=== PATIENT | female | born 1965 | race Caucasian/White ===

== ENCOUNTER 2020-07-19 18:18 | Emergency (ER) | payer OTHER, SELFPAY ==
[2020-07-19 19:29] VITALS: PULSE 89; RESP 16; TEMP 36.6; O2SAT 100; BMI 23.9
--- NOTE | 2020-07-19 20:07 | CT_ITS ---
EXAMINATION: CT HEAD WITHOUT CONTRAST CLINICAL INFORMATION: Headache. Left eye blurred vision. COMPARISON: None. TECHNIQUE: Contiguous axial imaging was performed from the skull base to vertex without intravenous contrast. This CT examination was performed using dose optimization techniques as appropriate, variously including the following: * Automated exposure control * Adjustment of mA and/or kV according to patient size (this includes techniques or standardized protocols for targeted exams where dose is matched to indication/reason for exam; i.e. extremities or head) Use of iterative reconstruction technique DLP: 689 mGy-cm. FINDINGS: There is no evidence of acute intracranial hemorrhage or territorial infarction. No abnormal mass effect or midline shift is seen. Zhao to white matter differentiation is well preserved. No extra-axial fluid collections are identified. No hydrocephalus. No significant volume loss. There is no abnormal attenuation within the brain parenchyma. The osseous structures and soft tissues are normal. The mastoid air cells and visualized portions of the paranasal sinuses are well aerated. CT/CT head/brain wo con IMPRESSION: No acute intracranial pathology.
[2020-07-19 21:01] LABS: Alanine Aminotransferase 10 U/L (0-31); Albumin Level 4.2 g/dL (3.5-5.0); Alkaline Phosphatase 90 U/L (39-117); Anion Gap 10 (12-20); Aspartate Amino Transferase 12 U/L (5-31); Bilirubin Total 0.3 mg/dL (0.0-1.0); Blood Urea Nitrogen 7 mg/dL (9-16); Calcium 9.3 mg/dL (8.4-10.2); Carbon Dioxide 28 mmol/L (22-29); Chloride 109 mmol/L (96-108); Estimated Glomerular Filt Rate > 60; Glucose Random 103 mg/dL (60-115); Potassium 4.4 mmol/l (3.3-5.1); Sodium 143 mmol/L (135-145); Total Protein 6.9 g/dL (6.5-8.0)
[2020-07-19 21:02] LABS: Red Cell Distribution Width 31.8 % (11.0-16.0)
[2020-07-19 21:04] LABS: Hematocrit 26.6 % (37-47); Hemoglobin 7.1 g/dl (12.0-16.0); Mean Corpuscular HGB Conc 26.7 g/dl (31.0-35.0); Mean Corpuscular Hemoglobin 16.5 pg (27.0-33.0); PLT CLUMP 1
[2020-07-19 21:12] LABS: Platelet Count 352 X10*3/uL (160-400); White Blood Count 6.6 X10*3/uL (4.8-10.8)
[2020-07-19 21:26] LABS: Mean Corpuscular Volume 61.9 fL (80-98); PLT ABN DIST 1
[2020-07-19 21:41] LABS: Band Neutrophils Percent 0 % (3-5); Eosinophils Absolute Manual 0.2 X10*3/UL (0.0-0.8); Eosinophils Percent Manual 3 % (0-4); Lymphocytes Absolute Manual 1.7 X10*3/uL (0.6-4.8); Lymphocytes Percent Manual 25 % (20-40); Monocytes Absolute Manual 0.3 X10*3/uL (0.0-1.2); Monocytes Percent Manual 5 % (2-11); Neutrophils Absolute Manual 4.4 X10*3/uL (2.2-7.9); Neutrophils Percent Manual 67 % (45-73); RBC Morphology NOTED
[2020-07-19 21:42] LABS: Microcytosis 1+
[2020-07-19 21:43] LABS: Hypochromasia 2+
--- NOTE | 2020-07-19 21:43 | ED_ITS ---
HPI - Eye Problem General Chief complaint: Eye Problems <Sergio Soares NP - Last Filed: 08/01/20 00:42> Stated complaint: eye irritation <MARY Luna Last Filed: 08/01/20 00:42> Time Seen by Provider: 07/19/20 20:07 <Sergio Soares NP - Last Filed: 08/01/20 00:42> Source: patient <MARY Luna Last Filed: 08/01/20 00:42> Mode of arrival: ambulatory <Sergio Soares NP - Last Filed: 08/01/20 00:42> Limitations: no limitations <MARY Luna Last Filed: 08/01/20 00:42> History of Present Illness HPI Narrative: States 2 weeks of seeing spots from the left eye. Also reports having some slight itchiness and drainage from the eye. Does were glasses and a bifoca l glasses. This mild headache in the left side of the head. No fever or chills review likely low stable healing. <Sergio Soares NP - Last Filed: 08/01/20 00:42> MD chief complaint: eye pain and eye redness <Sergio Soares NP - Last Filed: 08/01/20 00:42> Onset (ago): week(s) <MARY Luna Last Filed: 08/01/20 00:42> Onset description: gradual <MARY Luna Last Filed: 08/01/20 00:42> Severity: mild <MARY Luna Last Filed: 08/01/20 00:42> Treatments Prior to Arrival: none <MARY Luna Last Filed: 08/01/20 00:42> Related Data Home medications: Previous Rx's Medication Instructions Recorded erythromycin 1 appl OPHTHALMIC (EYE) Q6H #3.5 g 07/19/20 ferrous sulfate 325 mg PO DAILY #30 tab 07/19/20 <MARY Luna Last Filed: 08/01/20 00:42> Allergies/adverse reactions: Allergies Allergy/AdvReac Type Severity Reaction Status Date / Time lactose [LACTOSE] Allergy Intermediate GI SX Unverified 04/18/20 18:53 Lactose AdvReac Unknown Uncoded 11/03/19 00:00 <Sergio Soares NP - Last Filed: 08/01/20 00:42> Review of Systems Review of Systems: Constitutional: No Weight loss, No Fever, No Chills, No Night Sweats, No Fatigue, No Malaise ENT/Mouth: No Hearing loss, No Ear Pain, No Nasal Congestion, No Sinus Pain, No Hoarseness, No sore throat, No Rhinorrhea, No Swallowing Difficulty Eyes: + left Eye Pain, No Swelling, + Redness, No Foreign Body, + Discharge, No Vision Changes Cardiovascular: No Chest Pain, No SOB, No Dyspnea on Exertion, No Orthopnea, No Edema, No Palpitations Respiratory: No Cough, No Sputum, No Wheezing, No Smoke Exposure, No Dyspnea Gastrointestinal: No Nausea, No Vomiting, No Diarrhea, No Constipation, No abdominal Pain, No Hematochezia, No Melena Genitourinary: no irregular bleeding, No Dysuria, No Urinary Frequency, No Hematuria, No Urinary Incontinence, No Urgenc Musculoskeletal: No joint pain, No Myalgias, No Joint Swelling Skin: No Skin Lesions, No rash Neuro: No Weakness, No Numbness, No Paresthesias, No Loss of Consciousness, No Dizziness, No Headache Psych: No Social Issues Heme/Lymph: No Bruising, No Bleeding,No Lymphadenopathy Endocrine: No Polyuria, No Polydipsia, No Temperature Intolerance <Sergio Soares NP - Last Filed: 08/01/20 00:42> Yes all other systems are reviewed and are negative <Sergio Soares NP - Last Filed: 08/01/20 00:42> [facility] Past Medical History Medical History: Medical History (Updated 07/20/20 @ 00:00 by Adamaris Guerrero) Anemia <Sergio Soares NP - Last Filed: 08/01/20 00:42> Surgical History: Surgical History (Updated 07/19/20 @ 19:36 by Sallie Hutchins) H/O hand surgery H/O right knee surgery <Sergio Soares NP - Last Filed: 08/01/20 00:42> Social History Social History: Social History Smoking Status: Never smoker Use of substances other than those prescribed or required for medical reasons: No Advance Directives: No Advance Directives Information Provided: No <Sergio Soares NP - Last Filed: 08/01/20 00:42> Physical Exam Vital Signs: Vital Signs: Last Vital Signs Temp 97.9 F 07/19/20 19:29 Pulse 89 07/19/20 19:29 Resp 16 07/19/20 19:29 Pulse Ox 100 07/19/20 19:29 Body Mass Index 23.9 Reviewed <Sergio Soares NP - Last Filed: 08/01/20 00:42> Vital Signs: Last Vital Signs Temp 97.9 F 07/19/20 19:29 Pulse 89 07/19/20 19:29 Resp 16 07/19/20 19:29 Pulse Ox 100 07/19/20 19:29 Body Mass Index 23.9 <Sim Smith MD - Last Filed: 08/01/20 23:31> Const: General: cooperative, healthy appearing, comfortable, no acute distres s, well developed, alert and awake <Sergiobri Soares NP - Last Filed: 08/01/20 00:42> HENMT: Head: Yes normal to inspection <Sergio Soares NP - Last Filed: 08/01/20 00:42> Ears: hearing grossly normal bilaterally <Sergiobri Soares NP - Last Filed: 08/01/20 00:42> Eyes: Other: Bilateral EOM intact Bilateral IOP 12 R/ 11L <Sergiobri Soares NP - Last Filed: 08/01/20 00:42> General: appearance normal, both eyes and all related structures <Sergiobri Soares NP - Last Filed: 08/01/20 00:42> Visual Reeys: normal visual reyes by confrontation <Sergio Soares NP - Last Filed: 08/01/20 00:42> Eyelids: Yes eyelids normal <[facility] MARY Soares - Last Filed: 08/01/20 00:42> Conjunctivae: conjunctivae normal <Sergio MARY Soares - Last Filed: 08/01/20 00:42> Sclerae: sclerae normal <[facility] MARY Soares - Last Filed: 08/01/20 00:42> Corneas: corneas normal <[facility] MARY Soares - Last Filed: 08/01/20 00:42> Pupils: Equal, round and reactive pupils present <Sergiobri Soares NP - Last File d: 08/01/20 00:42> Direct Ophthalmoscopy: normal light reflex <[facility] Soares [facility] Last Filed: 08/01/20 00:42> Neck: Neck: Yes normal visual inspection <[facility] Soares [facility] Last Filed: 08/01/20 00:42> Chest: Chest palpation & inspection: normal inspection of the chest and normal palpation of entire chest wall <[facility] Soares [facility] Last Filed: 08/01/20 00:42> Resp: Effort & Inspection: normal respiratory effort, no audible wheezes, no cough and no respiratory distress <[facility] Soares [facility] Last Filed: 08/01/20 00:42> Cardio: Jugular venous distension: no JVD <[facility] Soares [facility] Last Filed: 08/01/20 00:42> Palpation: normal PMI <[facility] Soares [facility] Last Filed: 08/01/20 00:42> Rate: regular rate <[facility] Last Filed: 08/01/20 00:42> Heart sounds: S1 normal heart sound present and S2 normal heart sound present <[facility] Soares - Last Filed: 08/01/20 00:42> : General: Yes no CVA tenderness <[facility] Soares [facility] Last Filed: 08/01/20 00:42> Back/Spine/Pelvis: Back: no CVA tenderness <[facility] Soares [facility] Last Filed: 08/01/20 00:42> Cervical Spine: No Lhermitte's sign positive and No pain with cervical ROM <[facility] Soares, - Last Filed: 08/01/20 00:42> Thoracic/Lumbar Spine: thoracic and lumbar spine normal to inspection <[facility] Soares [facility] Last Filed: 08/01/20 00:42> Neuro: General: normal sensation to monofilament <[facility] Soares, [facility] Last Filed: 08/01/20 00:42> Cranial nerves: Yes Equal, round and reactive pupils present <[facility] Soares [facility] Last Filed: 08/01/20 00:42> Extrem: General: No cyanosis <[facility] Soares, [employer] SPECIALIST - Last Filed: 08/01/20 00:42> Psych: Appearance: grossly normal and well kempt <Sergiobri Soares NP - Last Filed: 08/01/20 00:42> MDM - Eye Problem Differential Diagnosis Differential diagnosis: Likely conjunctivitis and glaucoma; Unlikely corneal abrasion, acute iritis, hyphema, periorbital cellulitis, subconjunctival hemorrhage, corneal ulcer and ruptured globe <Sergiobri Soares NP - Last Filed: 08/01/20 00:42> Medical Records Attestation: I reviewed the patient's medical records. <Sergiobri Soares NP - Last Filed: 08/01/20 00:42> Lab Data Attestation: I reviewed the patient's lab results. <Sergiobri Soares NP - Last Filed: 08/01/20 00:42> Result diagrams: : 07/19/20 20:24 07/19/20 20:24 <Sergiobri Soares NP - Last Filed: 08/01/20 00:42> Labs: Lab Results 07/19/20 07/19/20 Range/Units 20:24 20:24 WBC 6.6 (4.8-10.8) X10*3/uL RBC 4.30 (4.20-5.50) X10*6/uL Hgb 7.1 L (12.0-16.0) g/dl Hct 26.6 L (37-47) % MCV 61.9 L (80-98) fL MCH 16.5 L (27.0-33.0) pg MCHC 26.7 L (31.0-35.0) g/dl RDW 31.8 H (11.0-16.0) % Plt Count 352 (160-400) X10*3/uL MPV TNP Immature Gran % (Auto) Cancelled Neut % (Auto) Cancelled Lymph % (Auto) Cancelled Lake % (Auto) Cancelled Eos % (Auto) Cancelled Baso % (Auto) Cancelled Lymph # (Auto) Cancelled Lake # (Auto) Cancelled Eos # (Auto) Cancelled Baso # (Auto) Cancelled Abs Immat Gran (auto) Cancelled Absolute Neuts (auto) Cancelled Absolute Nucleated RBC 0.000 (0.0-0.012) X10*3/uL Nucleated RBC % (auto) 0.0 (0.0-0.2) /100WBC Neutrophils % (Manual) 67 (45-73) % Band Neutrophils % 0 L (3-5) % Lymphocytes % (Manual) 25 (20-40) % Monocytes % (Manual) 5 (2-11) % Eosinophils % (Manual) 3 (0-4) % Abs Neuts (Manual) 4.4 (2.2-7.9) X10*3/uL Lymphocytes # (Manual) 1.7 (0.6-4.8) X10*3/uL Monocytes # (Manual) 0.3 (0.0-1.2) X10*3/uL Eosinophils # (Manual) 0.2 (0.0-0.8) X10*3/UL Toxic Vacuolation PRESENT Platelet Estimate NORMAL (NORMAL) Large Platelets PRESENT Plt Morphology Comment NOTED RBC Morphology NOTED Polychromasia 1+ Hypochromasia 2+ Microcytosis 1+ Target Cells 1+ Tear Drop Cells 1+ Ovalocytes 1+ Schistocytes 1+ Smear Path Review SEE NOTE Sodium 143 (135-145) mmol/L Potassium 4.4 (3.3-5.1) mmol/l Chloride 109 H (96-108) mmol/L Carbon Dioxide 28 (22-29) mmol/L Anion Gap 10 L (12-20) BUN 7 L (9-16) mg/dL Creatinine 0.65 (0.5-1.4) mg/dL Estim Creat Clear Calc 90.0 Estimated GFR > 60 Random Glucose 103 (60-115) mg/dL Calcium 9.3 (8.4-10.2) mg/dL Total Bilirubin 0.3 (0.0-1.0) mg/dL AST 12 (5-31) U/L ALT 10 (0-31) U/L Alkaline Phosphatase 90 (39-117) U/L Total Protein 6.9 (6.5-8.0) g/dL Albumin 4.2 (3.5-5.0) g/dL <Sergio Soares NP - Last Filed: 08/01/20 00:42> Lab Results 07/19/20 07/19/20 Range/Units 20:24 20:24 WBC 6.6 (4.8-10.8) X10*3/uL RBC 4.30 (4.20-5.50) X10*6/uL Hgb 7.1 L (12.0-16.0) g/dl Hct 26.6 L (37-47) % MCV 61.9 L (80-98) fL MCH 16.5 L (27.0-33.0) pg MCHC 26.7 L (31.0-35.0) g/dl RDW 31.8 H (11.0-16.0) % Plt Count 352 (160-400) X10*3/uL MPV TNP Immature Gran % (Auto) Cancelled Neut % (Auto) Cancelled Lymph % (Auto) Cancelled Lake % (Auto) Cancelled Eos % (Auto) Cancelled Baso % (Auto) Cancelled Lymph # (Auto) Cancelled Lake # (Auto) Cancelled Eos # (Auto) Cancelled Baso # (Auto) Cancelled Abs Immat Gran (auto) Cancelled Absolute Neuts (auto) Cancelled Absolute Nucleated RBC 0.000 (0.0-0.012) X10*3/uL Nucleated RBC % (auto) 0.0 (0.0-0.2) /100WBC Neutrophils % (Manual) 67 (45-73) % Band Neutrophils % 0 L (3-5) % Lymphocytes % (Manual) 25 (20-40) % Monocytes % (Manual) 5 (2-11) % Eosinophils % (Manual) 3 (0-4) % Abs Neuts (Manual) 4.4 (2.2-7.9) X10*3/uL Lymphocytes # (Manual) 1.7 (0.6-4.8) X10*3/uL Monocytes # (Manual) 0.3 (0.0-1.2) X10*3/uL Eosinophils # (Manual) 0.2 (0.0-0.8) X10*3/UL Toxic Vacuolation PRESENT Platelet Estimate NORMAL (NORMAL) Large Platelets PRESENT Plt Morphology Comment NOTED RBC Morphology NOTED Polychromasia 1+ Hypochromasia 2+ Microcytosis 1+ Target Cells 1+ Tear Drop Cells 1+ Ovalocytes 1+ Schistocytes 1+ Smear Path Review SEE NOTE Sodium 143 (135-145) mmol/L Potassium 4.4 (3.3-5.1) mmol/l Chloride 109 H (96-108) mmol/L Carbon Dioxide 28 (22-29) mmol/L Anion Gap 10 L (12-20) BUN 7 L (9-16) mg/dL Creatinine 0.65 (0.5-1.4) mg/dL Estim Creat Clear Calc 90.0 Estimated GFR > 60 Random Glucose 103 (60-115) mg/dL Calcium 9.3 (8.4-10.2) mg/dL Total Bilirubin 0.3 (0.0-1.0) mg/dL AST 12 (5-31) U/L ALT 10 (0-31) U/L Alkaline Phosphatase 90 (39-117) U/L Total Protein 6.9 (6.5-8.0) g/dL Albumin 4.2 (3.5-5.0) g/dL <Sim Smith MD - Last Filed: 08/01/20 23:31> Imaging Data CT scan - head: Radiologist's impression: [address] [address] [address] Scan Report Signed Patient: Ora Paulson DMR#: [id number] : 1965Acct:[id number] Age/Sex: 54 / FADM Date: 07/19/20 Loc: HO.ED Attending Dr: Ordering Physician: Sergio Soares NP Date of Service: 07/19/20 Procedure(s): CT head/brain wo con Accession Number(s): [id number] cc: Sergio Soares NP~ EXAMINATION: CT HEAD WITHOUT CONTRAST CLINICAL INFORMATION: Headache. Left eye blurred vision. COMPARISON: None. TECHNIQUE: Contiguous axial imaging was performed from the skull base to vertex without intravenous contrast. This CT examination was performed using dose optimization techniques as appropriate, variously including the following: * Automated exposure control * Adjustment of mA and/or kV according to patient size (this includes techniques or standardized protocols for targeted exams where dose is matched to indication/reason for exam; i.e. extremities or head) Use of iterative reconstruction technique DLP: 689 mGy-cm. FINDINGS: There is no evidence of acute intracranial hemorrhage or territorial infarction. No abnormal mass effect or midline shift is seen. Zhao to white matter differentiation is well preserved. No extra-axial fluid collections are identified. No hydrocephalus. No significant volume loss. There is no abnormal attenuation within the brain parenchyma. The osseous structures and soft tissues are normal. The mastoid air cells and visualized portions of the paranasal sinuses are well aerated. CT/CT head/brain wo con IMPRESSION: No acute intracranial pathology. Dictated By:TEDDY ELENA MD Signed By:<Electronically signed by TEDDY ELENA MD in OV>07/19/202030 DD/ 06 TD/TT: Coat Operator Insulator: ADONIS <Sergio Soares NP - Last Filed: 08/01/20 00:42> Discharge Plan Discharge Clinical Impression: Floaters in visual field, Anemia <Sergio Soares NP - Last Filed: 08/01/20 00:42> Patient Disposition: Home, Self-Care <Sergio Soares NP - Last Filed: 08/01/20 00:42> Instructions: Visual Floaters (ED), Anemia (ED) <Sergio Soares NP - Last Filed: 08/01/20 00:42> Additional Instructions: Please take her iron supplement as prescribed See her eye doctor on Wednesday or go see Dr. Bauman Return if any concerns or worsening symptoms High-protein diet Thank you <Sergio Soares NP - Last Filed: 08/01/20 00:42> Prescriptions: New ferrous sulfate 325 mg (65 mg iron) tablet 325 mg PO DAILY Qty: 30 RF: 0 erythromycin 5 mg/gram (0.5 %) ointment 1 appl ophthalmic (eye) Q6H Qty: 3.5 RF: 1 <Sergio Soares NP - Last Filed: 08/01/20 00:42> Referrals: Jonnie Bauman [Physician] - 2 days Physician,None [Primary Care Provider] - 2 days (Primary care) <Sergio Soares NP - Last Filed: 08/01/20 00:42> Interventions: ED Discharge Assessment Last Done: 07/19/20 22:17 <Sergio Soares NP - Last Filed: 08/01/20 00:42> Discharge Date/Time: 07/19/20 22:19 <Sergio Soares NP - Last Filed: 08/01/20 00:42>
[2020-07-19 21:44] LABS: Schistocytes 1+
[2020-07-19 21:45] LABS: Ovalocytes 1+; Target Cells 1+
[2020-07-19 21:46] LABS: Tear Drop Cells 1+
[2020-07-19 21:47] LABS: Large Platelet PRESENT; Platelet Estimate NORMAL (NORMAL); Platelet Morphology Comment NOTED
[2020-07-19 21:49] LABS: Polychromasia 1+
[2020-07-19 21:51] LABS: Toxic Vacuolation PRESENT
== END 2020-07-19 22:19 | disposition home or self-care (01) ==
PROVIDERS: Nurse Practitioner Primary Care; Emergency Provider Internal Medicine
DX: H43.392 Other vitreous opacities, left eye (principal); D64.9 Anemia, unspecified
CPT/HCPCS: 36415; 70450; 80053; 85007; 85025; 85027; 85060; 99284

== ENCOUNTER 2020-11-19 12:05 | Emergency (ER) | payer OTHER, SELFPAY ==
[2020-11-19 12:50] VITALS: BP 134/65; PULSE 76; RESP 18; TEMP 36.6; O2SAT 99; BMI 24.0
--- NOTE | 2020-11-19 12:56 | ED.EXTPRO ---
HPI - Extremity Problem General Chief complaint: Extremity Problem <MICHAEL Lopez - Last Filed: 11/19/20 15:45> Stated complaint: R HAND AND LEG INJ AT WORK <MICHAEL Lopez - Last Filed: 11/19/20 15:45> Time Seen by Provider: 11/19/20 12:56 <MICHAEL Lopez - Last Filed: 11/19/20 15:45> Source: patient <MICHAEL Lopez - Last Filed: 11/19/20 15:45> Mode of arrival: ambulatory <MICHAEL Lopez - Last Filed: 11/19/20 15:45> Limitations: no limitations <MICHAEL Lopez - Last Filed: 11/19/20 15:45> History of Present Illness HPI Narrative: 55 y/o male presenting with right lower extremity pain after she banged her leg on something a few days ago. She also reports some non-traumatic right dorsal hand swelling since yesterday, improved today. She states the bruising on her right leg. She is not on anticoagulation. No trouble ambulating. No numbness, tingling or weakness in the RUE. No rash. <MICHAEL Lopez - Last Filed: 11/19/20 15:45> MD Complaint: extremity pain and extremity swelling <MICHAEL Lopez - Last Filed: 11/19/20 15:45> Onset (ago): day(s) (4) <MICHAEL Lopez - Last Filed: 11/19/20 15:45> Pain Consistency: intermittent <MICHAEL Lopez - Last Filed: 11/19/20 15:45> Location: right and lower extremity <MICHAEL Lopez - Last Filed: 11/19/20 15:45> Severity scale (1-10): 3 <MICHAEL Lopez - Last Filed: 11/19/20 15:45> Quality: aching <MICHAEL Lopez - Last Filed: 11/19/20 15:45> Radiation: none <MICHAEL Lopez - Last Filed: 11/19/20 15:45> Relieving factors: nothing <MICHAEL Lopez - Last Filed: 11/19/20 15:45> Exacerbating factors: palpation <MICHAEL Lopez - Last Filed: 11/19/20 15:45> Associated symptoms: denies other symptoms <MICHAEL Lopez - Last Filed: 11/19/20 15:45> Related Data Home medications: Previous Rx's Medication Instructions Recorded erythromycin 1 appl OPHTHALMIC (EYE) Q6H #3.5 g 07/19/20 ferrous sulfate 325 mg PO DAILY #30 tab 07/19/20 ibuprofen 600 mg PO Q8H PRN #20 tab 11/19/20 <MICHAEL Lopez - Last Filed: 11/19/20 15:45> Allergies/Adverse reactions: Allergies Allergy/AdvReac Type Severity Reaction Status Date / Time lactose [LACTOSE] Allergy Intermediate GI SX Unverified 04/18/20 18:53 Lactose AdvReac Unknown Uncoded 11/03/19 00:00 <MICHAEL Lopez Last Filed: 11/19/20 15:45> Review of Systems Review of Systems: Constitutional: No Fever, No Chills Cardiovascular: No Chest Pain, No SOB Respiratory: No Cough, No Sputum Musculoskeletal: + joint pain, + Myalgias Skin: No Skin Lesions, No rash Neuro: No Weakness, No Numbness Heme/Lymph: + Bruising <MICHAEL Lopez Last Filed: 11/19/20 15:45> [facility] Past Medical History Attestation statement: The following information was validated with the patient. <MICHAEL Lopez Last Filed: 11/19/20 15:45> Medical History: Medical History Anemia <MICHAEL Lopez - Last Filed: 11/19/20 15:45> Surgical History: Surgical History (Updated 07/19/20 @ 19:36 by Sallie Hutchins) H/O hand surgery H/O right knee surgery <MICHAEL Lopez Last Filed: 11/19/20 15:45> Social History Social History: Social History Smoking Status: Never smoker Advance Directives: No Advance Directives Information Provided: No <MICHAEL Lopez Last Filed: 11/19/20 15:45> Physical Exam Vital Signs: Vital Signs: Last Vital Signs Temp 97.9 F 11/19/20 12:50 Pulse 76 11/19/20 12:50 Resp 18 11/19/20 12:50 BP 134/65 11/19/20 12:50 Pulse Ox 99 11/19/20 12:50 Body Mass Index 24.0 Appearance: Alert. Oriented X3. No acute distress. HEENT: normal inspection CVS: Normal heart rate and rhythm. Pulses normal. Respiratory: No respiratory distress. Skin: Skin warm and dry. Normal skin color. Normal skin turgor. No rashes. Extremities: minimal right dorsal hand swelling with no deformity, no tenderness. normal ROM and palpation of right wrist and fingers, no weakness or sensory deficit. RLE with 3cm ecchymotic area to lateral right knee with tenderness Neuro: Oriented X 3. No motor deficit. No sensory deficit. <MICHAEL Lopez - Last Filed: 11/19/20 15:45> Vital Signs: Last Vital Signs Temp 97.9 F 11/19/20 12:50 Pulse 76 11/19/20 12:50 Resp 18 11/19/20 12:50 BP 134/65 11/19/20 12:50 Pulse Ox 99 11/19/20 12:50 Body Mass Index 24.0 <Tremaine Guadarrama MD - Last Filed: 11/27/20 09:25> Course Course Course Narrative: 55 y/o female with pain and ecchymosis to right lateral knee s/p minor trauma. Ambulating well. No appreciable right hand swelling with normal examination. She is asking for a work note to be excused from work today. She is stable for discharge. <MICHAEL Lopez - Last Filed: 11/19/20 15:45> I have reviewed the chart <Tremaine Guadarrama MD - Last Filed: 11/27/20 09:25> Discharge Plan Discharge Clinical Impression: Hematoma <MICHAEL Lopez - Last Filed: 11/19/20 15:45> Patient Disposition: Home, Self-Care <MICHAEL Lopez - Last Filed: 11/19/20 15:45> Instructions: Hematoma (ED) <MICHAEL Lopez - Last Filed: 11/19/20 15:45> Additional Instructions: Your examination today was reassuring. Recommend rest, ice and elevation to your leg to help with healing. Wear NOE wrap as needed for compression and support. Take Motrin and/or Tylenol as needed for pain. If you notice the return in swelling in your hand or develop numbness, weakness or any other concerning symptom come back to the ER for further evaluation. <MICHAEL Lopez - Last Filed: 11/19/20 15:45> Prescriptions: New ibuprofen 600 mg tablet 600 mg PO Q8H PRN (Reason: pain) Qty: 20 RF: 0 No Action ferrous sulfate 325 mg (65 mg iron) tablet 325 mg PO DAILY Qty: 30 RF: 0 erythromycin 5 mg/gram (0.5 %) ointment 1 appl ophthalmic (eye) Q6H Qty: 3.5 RF: 1 <MICHAEL Lopez - Last Filed: 11/19/20 15:45> Stand Alone Forms: Work/School Release <MICHAEL Lopez - Last Filed: 11/19/20 15:45> Interventions: ED Discharge Assessment Last Done: 11/19/20 13:13 <MICHAEL Lopez - Last Filed: 11/19/20 15:45> Discharge Date/Time: 11/19/20 13:13 <MICHAEL Lopez - Last Filed: 11/19/20 15:45>
== END 2020-11-19 13:13 | disposition home or self-care (01) ==
PROVIDERS: Emergency Provider Emergency Medicine
DX: S80.01XA Contusion of right knee, initial encounter (principal); W22.8XXA Striking against or struck by other objects, initial encounter; Y93.89 Activity, other specified; Y92.59 Other trade areas as the place of occurrence of the external cause; Y99.0 Civilian activity done for income or pay
CPT/HCPCS: 99283

== ENCOUNTER 2021-01-20 13:17 | Emergency (ER) | payer OTHER, SELFPAY ==
[2021-01-20 13:20] VITALS: BP 156/72; PULSE 83; RESP 16; TEMP 36.5; O2SAT 99; BMI 24.0
--- NOTE | 2021-01-20 15:22 | ED.SKABFB ---
HPI - Skin/Abscess/Foreign Bdy General Chief complaint: Skin/Abscess/Foreign Body Stated complaint: rash Time Seen by Provider: 01/20/21 15:04 Source: patient Mode of arrival: ambulatory History of Present Illness HPI narrative: 55-year-old female with a past medical history of anemia presenting to the ED complaining of resolving red rash to right forearm x1 week with mild pruritus. Reports improvement with Benadryl at home and topical hydrocortisone. Admits had 2nd dose of med urinary vaccine last Wednesday and rash noted on Wednesday. Denies associated SOB, wheezing, throat swelling, rash in other area other than RUE, known tick or insect bites, recent travel MD complaint: rash Related Data Previous Rx's Medication Instructions Recorded erythromycin 1 appl OPHTHALMIC (EYE) Q6H #3.5 g 07/19/20 ferrous sulfate 325 mg PO DAILY #30 tab 07/19/20 ibuprofen 600 mg PO Q8H PRN #20 tab 11/19/20 Allergies Allergy/AdvReac Type Severity Reaction Status Date / Time lactose [LACTOSE] Allergy Intermediate GI SX Unverified 04/18/20 18:53 Lactose AdvReac Unknown Uncoded 11/03/19 00:00 Review of Systems Review of Systems: Constitutional: No Fever, No Chills ENT/Mouth: No Ear Pain, No sore throat, No Swallowing Difficulty Cardiovascular: No Chest Pain, No SOB Respiratory: No Cough, No Wheezing Gastrointestinal: No Nausea, No Vomiting, No Abdominal pain Musculoskeletal: No joint pain, No Myalgias, No Joint Swelling Skin: No Skin Lesions, + rash Neuro: No Weakness, No Numbness, No Paresthesias Yes all other systems are reviewed and are negative [facility] Past Medical History Attestation statement: The following information was validated with the patient. Medical History Anemia Surgical History (Updated 07/19/20 @ 19:36 by Sallie Hutchins) H/O hand surgery H/O right knee surgery Social History Social History Advance Directives: No Advance Directives Information Provided: No Patient : No Physical Exam Vital Signs: Vital Signs: Last Vital Signs Temp 97.7 F 01/20/21 13:20 Pulse 83 01/20/21 13:20 Resp 16 01/20/21 13:20 BP 156/72 H 01/20/21 13:20 Pulse Ox 99 01/20/21 13:20 Body Mass Index 24.0 Const: General: cooperative, healthy appearing and no acute distress Orientation/consciousness: patient oriented x3 Limitations: no limitations HENMT: Head: Yes normal to inspection Ears: hearing grossly normal bilaterally General nose exam: Normal external nose present Face and sinus: Yes normal facial exam Mouth: Normal oral and palatal mucosa present Throat: Yes posterior oropharynx normal, Yes tonsils normal, Yes uvula midline, No uvula laterally displaced and No uvular edema Eyes: General: appearance normal, both eyes and all related structures EOM: EOMs intact bilaterally Neck: Neck: Yes normal visual inspection Resp: Effort & Inspection: normal respiratory effort, no grunting and not labored Cardio: Rate: regular rate GI: Inspection: Yes normal to inspection Skin: Other: One red lump noted to right forearm. No other rash noted to body. No fluctuance/induration, no streaking. Wounds: no wounds Neuro: General: patient oriented x3, gait normal, tone normal and moves all extremities Gait exam (Neuro): Normal gait present Extrem: General: Yes normal to inspection MDM - Skin/Abscess/Foreign Bdy MDM Narrative Medical decision making narrative: 55-year-old female with a past medical history of anemia presenting to the ED complaining of resolving red rash to right forearm x1 week with mild pruritus. On exam VSS, NAD/well-appearing, discussed with patient symptomatic remedies at home for rash vs possible atopic dermatitis. Less likely reaction from vaccine or allergic reaction Discharge Plan Discharge Clinical Impression: Rash Patient Disposition: Home, Self-Care Instructions: Acute Rash (ED) Additional Instructions: Continue using Benadryl at home as needed for rash You may also take Zyrtec or Claritin during the day it will not make you drowsy Hydrocortisone cream will help with itching, do not apply to face, hands, feet, or genital area as has the side effect potentially discolored your skin In addition you may take Pepcid for allergic reactions If rash persists or worsens, develops any difficulty breathing, oral swelling, or wheezing return to the ED immediately Prescriptions: No Action ferrous sulfate 325 mg (65 mg iron) tablet 325 mg PO DAILY Qty: 30 RF: 0 erythromycin 5 mg/gram (0.5 %) ointment 1 appl ophthalmic (eye) Q6H Qty: 3.5 RF: 1 ibuprofen 600 mg tablet 600 mg PO Q8H PRN (Reason: pain) Qty: 20 RF: 0 Referrals: Physician,None [Primary Care Provider] - 2 days Interventions: ED Discharge Assessment Last Done: 01/20/21 15:25 Discharge Date/Time: 01/20/21 15:26
== END 2021-01-20 15:26 | disposition home or self-care (01) ==
PROVIDERS: Emergency Provider Emergency Medicine
DX: R21 Rash and other nonspecific skin eruption (principal)
CPT/HCPCS: 99282; 99283

== ENCOUNTER 2021-04-30 09:50 | Emergency (ER) | payer OTHER, SELFPAY ==
--- NOTE | ~2021-04-30 | XR_ITS ---
EXAMINATION: XR CHEST CLINICAL INFORMATION: Cough COMPARISON: None TECHNIQUE: 2 views of the chest were obtained. FINDINGS: No significant abnormality is noted involving the heart, lungs, mediastinum, bony thorax or soft tissues. XR/XR chest 2V IMPRESSION: Unremarkable chest examination.
[2021-04-30 11:20] VITALS: BP 152/92; PULSE 96; O2SAT 100; BMI 24.0
--- NOTE | 2021-04-30 12:21 | PC.NURSE ---
covid swab performed, lab drawn, will continue to monitor.
[2021-04-30 12:27] LABS: Carbon Monoxide POC 1.9 %
--- NOTE | 2021-04-30 12:28 | ED_ITS ---
HPI - General Adult General Chief complaint: General Medical Stated complaint: headache, dizziness Time Seen by Provider: 04/30/21 11:39 Source: patient Mode of arrival: ambulatory Limitations: no limitations History of Present Illness HPI narrative: 55-year-old female previously healthy here with complaints of headache, nausea, general malaise and cough since Wednesday. 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 She tells me they also recently had a carbon monoxide leak d/t several chemicals used. She believes these things may be contributing to her symptoms. No vomiting, abdominal pain, diarrhea, fevers, chills. Related Data Previous Rx's Medication Instructions Recorded erythromycin 5 mg/gram (0.5 %) eye 1 appl OPHTHALMIC (EYE) Q6H #3.5 g 07/19/20 ointment ferrous sulfate 325 mg (65 mg 325 mg PO DAILY #30 tab 07/19/20 iron) tablet ibuprofen 600 mg tablet 600 mg PO Q8H PRN #20 tab 11/19/20 Allergies Allergy/AdvReac Type Severity Reaction Status Date / Time lactose [LACTOSE] Allergy Intermediate GI SX Unverified 04/18/20 18:53 Lactose AdvReac Unknown Uncoded 11/03/19 00:00 Review of Systems Review of Systems: Yes all other systems are reviewed and are negative Constitutional: Constitutional: Reports no additional constitutional complaints, Denies body ache(s), Denies chills, Denies fever(s), Reports headache(s), Reports malaise and Denies weakness Eyes: Eyes: Reports no additional eye complaints and Denies change in vision ENT: Reports system reviewed and no additional complaints, except as documented, Denies dizziness, Reports headache(s), Denies nasal congestion, Denies nasal discharge and Denies neck pain Cardiovascular: Cardiovascular: Reports no additional cardiovascular complaints, Denies chest pain, Denies leg edema and Denies dyspnea Respiratory: Respiratory: Reports no additional respiratory complaints, Reports cough and Denies dyspnea Gastrointestinal: Gastrointestinal: Reports no additional gastrointestinal complaints, Denies abdominal pain, Denies diarrhea, Reports nausea and Denies vomiting Genitourinary: Genitourinary: Reports no additional female genitourinary complaints and Denies urinary incontinence Musculoskeletal: Musculoskeletal: Reports no additional musculoskeletal complaints, Denies back pain, Denies arthralgias, Denies joint swelling, Denies neck pain, Denies numbness and Denies tingling Integumentary/Breasts: Skin/Breast: Reports system reviewed and no additional complaints, except as docu and Denies rash Neurologic: Reports system reviewed and no additional complaints, except as documented, Denies Abnormal speech present, Denies dizziness, Reports headache(s), Denies numbness, Denies tingling and Denies weakness PMFSH Past Medical History Attestation statement: The following information was validated with the patient. Source: old records reviewed and nursing notes reviewed Medical History Anemia Surgical History H/O hand surgery H/O right knee surgery Social History Social History Alcohol intake: never Patient Tobacco Use Status: Never used Tobacco Use of substances other than those prescribed or required for medical reasons: No Advance Directives: No Physical Exam Vital Signs: Vital Signs: Last Vital Signs Pulse 96 04/30/21 11:20 BP 152/92 H 04/30/21 11:20 Pulse Ox 100 04/30/21 11:20 Body Mass Index 24.0 Const: General: cooperative, healthy appearing, comfortable and no acute distress Orientation/consciousness: patient oriented x3 Limitations: no limitations HENMT: Head: Yes normal to inspection Ears: hearing grossly normal bilaterally General nose exam: Normal external nose present Face and sinus: Yes normal facial exam Mouth: Normal oral and palatal mucosa present Throat: Yes posterior oropharynx normal Eyes: General: appearance normal, both eyes and all related structures Pupils: Equal, round and reactive pupils present Neck: Neck: Yes normal visual inspection Chest: Chest palpation & inspection: normal inspection of the chest Resp: Effort & Inspection: normal respiratory effort Auscultation: clear to auscultation bilaterally Cardio: Rate: regular rate Rhythm: regular rhythm Peripheral pulses: Peripheral pulses 2+ throughout GI: Inspection: Yes normal to inspection Palpation (GI): Soft to palpation and nontender Auscultation: normal bowel sounds Back/Spine/Pelvis: Thoracic/Lumbar Spine: thoracic and lumbar spine normal to inspection Skin: General skin exam: no rashes or lesions noted Neuro: General: patient oriented x3, no focal motor deficits and normal sensation to monofilament Cranial nerves: Yes Equal, round and reactive pupils present Cognition (Neuro): normal cognition Speech: No Abnormal speech present Gait exam (Neuro): Normal gait present Motor exam (neuro): 5/5 motor strength present throughout Extrem: General: Yes normal to inspection, Yes no pedal edema and Yes no calf tenderness Course Course Course Narrative: 55-year-old female here with complaints of cough, malaise, headache and nausea since Wednesday. Patient is concern for potential exposure to COVID as well as carbon monoxide. Will check covid screen, CXR, carbon monoxide level 1350-Covid screen negative. CXR negative. Carbon monoxide level negative. Likely viral syndrome Reviewed worrisome signs and symptoms of when to return to the emergency department. Comfortable discharge home. Medical Decision Making Medical Records Medical records reviewed: Yes I reviewed the patient's medical records. Lab Data Lab results reviewed: Yes I reviewed the patient's lab results. Labs: Lab Results 04/30/21 04/30/21 Range/Units 12:13 12:22 Carboxyhemoglobin % 1.9 % COVID-19 (ESTIVEN) Negative (Negative) COVID-19 Clin Com See Note Imaging Data Chest x-ray: Attestation: I personally reviewed and interpreted this imaging study as follows: Radiologist's impression: [address] [address] XRay Report Signed Patient: Ora Paulson MR#: [id number] : 1965 Acct:[id number] Age/Sex: 55 / F ADM Date: 04/30/21 Loc: .ED Attending Dr: Ordering Physician: Gi Armstrong NP Date of Service: 04/30/21 Procedure(s): XR chest 2V Accession Number(s): [id number] cc: Gi Armstrong NP~ EXAMINATION: XR CHEST CLINICAL INFORMATION: Cough COMPARISON: None TECHNIQUE: 2 views of the chest were obtained. FINDINGS: No significant abnormality is noted involving the heart, lungs, mediastinum, bony thorax or soft tissues. XR/XR chest 2V IMPRESSION: Unremarkable chest examination. Discharge Plan Discharge Clinical Impression: Acute viral syndrome Patient Disposition: Home, Self-Care Instructions: Viral Syndrome (ED) Additional Instructions: Increase fluids, rest Motrin or Tylenol as discussed COVID screen negative Prescriptions: No Action ferrous sulfate 325 mg (65 mg iron) tablet 325 mg PO DAILY Qty: 30 RF: 0 erythromycin 5 mg/gram (0.5 %) ointment 1 appl ophthalmic (eye) Q6H Qty: 3.5 RF: 1 ibuprofen 600 mg tablet 600 mg PO Q8H PRN (Reason: pain) Qty: 20 RF: 0 Referrals: Physician,None [Primary Care Provider] - 2 days Stand Alone Forms: Work/School Release Interventions: ED Discharge Assessment Last Done: 04/30/21 13:27 Discharge Date/Time: 04/30/21 13:28
[2021-04-30 12:36] LABS: Carbon Monoxide 1.9
[2021-04-30 12:42] LABS: COVID-19 Test Negative (Negative)
== END 2021-04-30 13:28 | disposition home or self-care (01) ==
PROVIDERS: Nurse Practitioner Family; Emergency Provider Emergency Medicine Emergency Medical Services
DX: B34.9 Viral infection, unspecified (principal); R51.9 Headache, unspecified; R05 Cough; M79.10 Myalgia, unspecified site; Z20.822 Contact with and (suspected) exposure to COVID-19; Z79.899 Other long term (current) drug therapy
CPT/HCPCS: 36415; 71046; 87635; 99283

== ENCOUNTER 2021-05-27 09:19 | Outpatient (REF) | payer OTHER, SELFPAY ==
[2021-05-27 10:10] LABS: COVID-19 Test Negative (Negative)
== END 2021-05-27 09:20 | disposition home or self-care (01) ==
LOC: HO.LAB 09:19
PROVIDERS: PCP Internal Medicine; Visit Provider Internal Medicine
DX: Z20.822 Contact with and (suspected) exposure to COVID-19 (principal)
CPT/HCPCS: 36415; 87635; C9803

== ENCOUNTER 2021-06-30 09:12 | Outpatient (REF) | payer OTHER, SELFPAY | END 2021-06-30 09:13 | disposition home or self-care (01) | LOC: HO.LAB 09:12 | PROVIDERS: Visit Provider Internal Medicine | DX: Z20.822 Contact with and (suspected) exposure to COVID-19 (principal) | CPT/HCPCS: C9803; U0003; U0005 ==